=== PATIENT | female | born 1955 | race Caucasian/White ===

== ENCOUNTER 2025-03-08 10:26 | Outpatient (CLI) | payer MEDICARE, MEDICAID | END 2025-03-08 10:27 | disposition home or self-care (01) | LOC: RAD 10:26 | PROVIDERS: ATTEND Family Medicine | DX: M54.50 Low back pain, unspecified (principal); R10.30 Lower abdominal pain, unspecified; M47.816 Spondylosis without myelopathy or radiculopathy, lumbar region | CPT/HCPCS: 72100; 74019; 80053; 85025 ==